=== PATIENT | female | born 1985 | race Caucasian/White ===

== ENCOUNTER 2021-10-06 06:10 | Day surgery (SDC) | payer OTHER ==
[2021-10-03 16:06] VITALS: BMI 32.0
[2021-10-06] MEDS ORDERED: MIDAZOLAM HCL 2 MG/2 ML SINGLE DOSE VIAL ONE (07:23)
[2021-10-06] MEDS ORDERED: ONDANSETRON 4 MG/2 ML VIAL ONE (07:24)
[2021-10-06] MEDS ORDERED: DEXAMETHASONE SOD PHOSPHATE 4 MG/1 ML VIAL ONE (07:24)
[2021-10-06] MEDS ORDERED: KETOROLAC TROMETHAMINE 30 MG/1 ML VIAL ONE (07:24)
[2021-10-06] MEDS ORDERED: LIDOCAINE HCL/PF 2% SDV 5ML VIAL ONE (07:24)
[2021-10-06] MEDS ORDERED: PROPOFOL 40 ML ONE (07:24)
[2021-10-06] MEDS ORDERED: SUCCINYLCHOLINE CHLORIDE 200 MG/10 ML SYRINGE ONE (07:29)
[2021-10-06] MEDS ORDERED: BUPIVACAINE HCL/PF 0.5% (5 MG/ML) 30 ML VIAL IJ ONE (07:32)
[2021-10-06] MEDS ORDERED: ceFAZolin SODIUM 1 GM VIAL ONE (08:31)
[2021-10-06] MEDS ORDERED: PROPOFOL 20 ML ONE (09:33)
[2021-10-06] MEDS ORDERED: oxyCODONE HCL 5 MG TABLET PO PRN ×2 (10:06)
[2021-10-06] MEDS ORDERED: ACETAMINOPHEN 1000 MG/100 ML BAG IVPB ONE (10:06)
[2021-10-06] MEDS ORDERED: ONDANSETRON 4 MG/2 ML VIAL IVPUSH PRN (10:06)
[2021-10-06] MEDS ORDERED: LACTATED RINGERS SOLUTION 1,000 ML IV SCH (10:15)
[2021-10-06 13:03] VITALS: RESP 16; TEMP 97.7
[2021-10-06 13:07] VITALS: BP 130/70; PULSE 64
== END 2021-10-06 12:00 | disposition home or self-care (01) ==
LOC: FASU 06:10
PROVIDERS: ATTEND Orthopaedic Surgery Sports Medicine
PROC: 0QSK04Z Reposition Left Fibula with Internal Fixation Device, Open Approach (ICD-10-PCS; principal; 2021-10-06 08:47)
DX: S89.302A Unspecified physeal fracture of lower end of left fibula, initial encounter for closed fracture (principal); X58.XXXA Exposure to other specified factors, initial encounter; Y93.9 Activity, unspecified; Y92.9 Unspecified place or not applicable
CPT/HCPCS: 27792; C1713; 73610-TC-LT-FY; 81025; 94760

== ENCOUNTER 2022-06-13 11:49 | Emergency (ER) | payer OTHER ==
[2022-06-13 12:08] VITALS: BP 124/89; PULSE 108; RESP 18; TEMP 98.7; BMI 32.9
[2022-06-13] MEDS ORDERED: DEXAMETHASONE SOD PHOSPHATE 10 MG/1 ML VIAL IM ONE (12:50)
[2022-06-13] MEDS ORDERED: PENICILLIN G BENZATHINE 1,200,000 UNIT/2 ML PFS IM ONE ×2 (12:51→12:53)
[2022-06-13] MEDS ORDERED: PENICILLIN G BENZATHINE 2,400,000 UNIT/4 ML PFS IM ONE (12:51)
[2022-06-13] MEDS ORDERED: DEXAMETHASONE SOD PHOSPHATE 10 MG/1 ML VIAL ONE (12:53)
[2022-06-13 13:07] LABS: THROAT:GRP A STREP NOT DETECTED (NOTDETECTED)
== END 2022-06-13 13:03 | disposition home or self-care (01) ==
LOC: JERFT 11:49
PROC: 3E023GC Introduction of Other Therapeutic Substance into Muscle, Percutaneous Approach (ICD-10-PCS; principal; 2022-06-13)
PROC: 3E02329 Introduction of Other Anti-infective into Muscle, Percutaneous Approach (ICD-10-PCS; 2022-06-13)
DX: K12.2 Cellulitis and abscess of mouth (principal); R07.0 Pain in throat; Z20.822 Contact with and (suspected) exposure to COVID-19
CPT/HCPCS: 0241U-QW; 87651; 99284-25; J1100

== ENCOUNTER 2022-09-25 22:45 | Emergency (ER) | payer OTHER ==
[2022-09-25 22:50] VITALS: RESP 18; TEMP 97.7; BMI 32.9
[2022-09-25] MEDS ORDERED: ACETAMINOPHEN 1000 MG/100 ML BAG IVPB ONE (23:32)
[2022-09-25] MEDS ORDERED: ACETAMINOPHEN INJECTION 100 ML IVPB ONE (23:39)
[2022-09-25] MEDS ORDERED: SODIUM CHLORIDE 0.9% 500 ML INFUS.BAG IV ONE (23:39)
[2022-09-26 00:39] LABS: BASO % 0.2 % (0-2.0); EOS % 0.1 % (0-4.5); HEMATOCRIT 40.6 % (32.4-45.2); HEMOGLOBIN 13.8 GM/dL (10.7-15.3); LYMPH % 8.8 % (8-40); MCH 31.1 pg (25.7-33.7); MCHC 33.9 g/dl (32.0-36.0); MEAN CELL VOLUME 91.9 fl (80-96); MEAN PLT VOLUME 7.4 fl (7.5-11.1); MONO % 4.8 % (3.8-10.2); NEUT % 86.1 % (42.8-82.8); PLATELET COUNT 353 10^3/uL (134-434); RBC 4.42 M/mm3 (3.60-5.2); RDW 14.2 % (11.6-15.6); WHITE BLOOD COUNT 14.7 K/mm3 (4.0-10.0)
[2022-09-26 00:51] LABS: POTASSIUM 4.2 mmol/L (3.5-5.1)
[2022-09-26 00:53] LABS: CALCIUM 9.1 mg/dL (8.5-10.1)
[2022-09-26 00:54] LABS: ALBUMIN 3.4 g/dl (3.4-5.0); BLOOD UREA NITROGEN 17.5 mg/dL (7-18)
[2022-09-26 00:57] LABS: CREATININE 1.1 mg/dL (0.55-1.3)
[2022-09-26 00:58] LABS: TOT PROT 7.3 g/dl (6.4-8.2)
[2022-09-26 00:59] LABS: BILIRUBIN,TOTAL 0.2 mg/dL (0.2-1)
[2022-09-26 02:14] VITALS: BP 110/65; PULSE 88
== END 2022-09-26 03:24 | disposition home or self-care (01) ==
LOC: JER 22:45
PROC: 3E033NZ Introduction of Analgesics, Hypnotics, Sedatives into Peripheral Vein, Percutaneous Approach (ICD-10-PCS; principal; 2022-09-25)
DX: R55 Syncope and collapse (principal); R42 Dizziness and giddiness; S01.111A Laceration without foreign body of right eyelid and periocular area, initial encounter; S01.81XA Laceration without foreign body of other part of head, initial encounter; W22.8XXA Striking against or struck by other objects, initial encounter; Y92.410 Unspecified street and highway as the place of occurrence of the external cause
CPT/HCPCS: 36415; 70450-TC; 73610-TC-LT-FY; 73610-TC-RT-FY; 73630-TC-LT; 73630-TC-RT-FY; 80053; 84484; 84703; 85025; 93005; 93010; 99285-25